=== PATIENT | female | born 1975 | race African-American/Black ===

== ENCOUNTER 2016-12-19 08:18 | Emergency (ER) | payer SELFPAY ==
[~2016-12-19] VITALS: Ht 157.5 cm; Wt 45.0 kg
[~2016-12-19 08:18] MED LIST: FLAG500T PO; MACR100C PO
[2016-12-19 08:19] VITALS: BP 150/70; PULSE 92; RESP 16; TEMP 99.8; O2SAT 96
[2016-12-19] MEDS ORDERED: REME15TA PO (09:08)
[2016-12-19] MEDS ORDERED: ONDANSETRON HCL 4 MG/2 ML VIAL IV PUSH ONE (09:15)
[2016-12-19] MEDS ORDERED: SODIUM CHLOR 0.9% 1000 ML INJ 1,000 ML IV ONE (09:15)
[2016-12-19] MEDS ORDERED: KETOROLAC TROMETHAMINE 30 MG/ML (IVP) VIAL IV PUSH ONE (09:15)
--- NOTE | 2016-12-19 09:20 | PD ---
HPI Chief Complaint: Cold / Flu Symptoms Time Seen by Provider: 09:09 Travel History International Travel<30 days: No Contact w/Intl Traveler<30days: No Traveled to known affect area: No History of Present Illness HPI 41-year-old female complains of cough body ache abdominal pain nausea vomiting diarrhea. Patient states that the symptoms started 4 days ago. Patient states that the nausea vomiting diarrhea started last night. Patient states that she had persistent dry cough. Patient states that she has cramping pain is sharp pain diffuse over the abdomen for the past 4 days. Patient denies any pain radiation. Patient denies any dysuria or frequency. Patient states that she has iced discharge a few days ago and started on menstruation period. Patient has history HIV-positive and not on any medication now. Patient has history of depression and was on Remeron until she ran out of it recently. PFSH Past Medical History Autoimmune Disease: Yes (HIV ) Blood Disorders: No Depression: Yes Cancer: No Cardiovascular Problems: No Diminished Hearing: No Endocrine: No Gastrointestinal Disorders: No Glaucoma: No Genitourinary: No Immune Disorder: No Musculoskeletal: No Neurologic: No Psychiatric: No Reproductive: No Respiratory: No ?: Not LMP: at this time : 1 Para: 0 Miscarriage: 1 Past Surgical History AICD: No Arteriovenous Shunt: No Insulin Pump: No Joint Replacement: Yes (right femur ) Pacemaker: No Other Surgery: Yes Social History Alcohol Use: Yes (PT STATES "ALL THE TIME") Tobacco Use: Yes (4 PPD) Substance Use: Yes (smokes a drug) Allergies-Medications (Allergen,Severity, Reaction): Coded Allergies: No Known Allergies (Verified , 08/16/16) Reported Meds & Prescriptions Reported Meds & Active Scripts Active Reported Remeron (Mirtazapine) 15 Mg Tab Unknown Dose PO HS Review of Systems General / Constitutional: No: Fever Eyes: No: Visual changes HENT: No: Headaches Cardiovascular: No: Chest Pain or Discomfort Respiratory: Positive: Cough, No: Shortness of Breath Gastrointestinal: Positive: Nausea, Vomiting, Diarrhea, Abdominal Pain Genitourinary: No: Dysuria Musculoskeletal: Positive: Pain Skin: No Rash Neurologic: No: Weakness Psychiatric: No: Depression Endocrine: No: Polydipsia Hematologic/Lymphatic: No: Easy Bruising Physical Exam Narrative GENERAL: Well-nourished, well-developed patient. SKIN: Warm and dry. HEAD: Normocephalic. EYES: No scleral icterus. No injection or drainage. NECK: Supple, trachea midline. No JVD or lymphadenopathy. CARDIOVASCULAR: Regular rate and rhythm without murmurs, gallops, or rubs. RESPIRATORY: Breath sounds equal bilaterally. No accessory muscle use. GASTROINTESTINAL: Abdomen soft, nondistended. Patient has mild diffuse tenderness over the abdomen. No rebound tenderness. No mass. MUSCULOSKELETAL: No cyanosis, or edema. BACK: Nontender without obvious deformity. No CVA tenderness. Neurologic exam normal. Data Data Last Documented VS Vital Signs Date Time Temp Pulse Resp B/P Pulse Ox O2 Delivery O2 Flow Rate FiO2 12/19/16 08:19 99.8 92 16 150/70 96 Orders Complete Blood Count With Diff (12/19/16 09:14) Comprehensive Metabolic Panel (12/19/16 09:14) Lipase (12/19/16 09:14) Urinalysis - C+S If Indicated (12/19/16 09:14) Influenzae A/B Antigen (12/19/16 09:14) Chest, Single Ap (12/19/16 09:14) Iv Access Insert/Monitor (12/19/16 09:14) Ecg Monitoring (12/19/16 09:14) Oximetry (12/19/16 09:14) Sodium Chlor 0.9% 1000 Ml Inj (Ns 1000 M (12/19/16 09:15) Ketorolac Inj (Toradol Inj) (12/19/16 09:15) Ondansetron Inj (Zofran Inj) (12/19/16 09:15) Urine Culture (12/19/16 09:33) Labs Laboratory Tests Test 12/19/16 12/19/16 09:33 09:37 Urine Color RED Urine Turbidity CLOUDY Urine pH 6.5 Urine Specific [place] 1.031 Urine Protein 100 mg/dL Urine Glucose (UA) NEG mg/dL Urine Ketones 10 mg/dL Urine Occult Blood LARGE Urine Nitrite NEG Urine Bilirubin NEG Urine Urobilinogen 2.0 MG/DL Urine Leukocyte Esterase SMALL Urine RBC /hpf Urine WBC 43 /hpf Urine Squamous Epithelial 11 /hpf Cells Urine Bacteria FEW /hpf Urine Mucus MANY /lpf Microscopic Urinalysis Comment CULTURE INDICATED White Blood Count 3.6 TH/MM3 Red Blood Count 4.64 MIL/MM3 Hemoglobin 14.4 GM/DL Hematocrit 43.4 % Mean Corpuscular Volume 93.4 FL Mean Corpuscular Hemoglobin 31.0 PG Mean Corpuscular Hemoglobin 33.2 % Concent Red Cell Distribution Width 14.5 % Platelet Count 133 TH/MM3 Mean Platelet Volume 8.7 FL Neutrophils (%) (Auto) 63.1 % Lymphocytes (%) (Auto) 29.2 % Monocytes (%) (Auto) 7.2 % Eosinophils (%) (Auto) 0.0 % Basophils (%) (Auto) 0.5 % Neutrophils # (Auto) 2.3 TH/MM3 Lymphocytes # (Auto) 1.1 TH/MM3 Monocytes # (Auto) 0.3 TH/MM3 Eosinophils # (Auto) 0.0 TH/MM3 Basophils # (Auto) 0.0 TH/MM3 CBC Comment DIFF FINAL Differential Comment Sodium Level 134 MEQ/L Potassium Level 4.2 MEQ/L Chloride Level 102 MEQ/L Carbon Dioxide Level 26.8 MEQ/L Anion Gap 5 MEQ/L Blood Urea Nitrogen 8 MG/DL Creatinine 0.79 MG/DL Estimat Glomerular Filtration 97 ML/MIN Rate Random Glucose 90 MG/DL Calcium Level 8.6 MG/DL Total Bilirubin 0.4 MG/DL Aspartate Amino Transf 35 U/L (AST/SGOT) Alanine Aminotransferase 17 U/L (ALT/SGPT) Alkaline Phosphatase 57 U/L Total Protein 8.1 GM/DL Albumin 3.7 GM/DL Lipase 188 U/L [facility] Medical Decision Making Medical Screen Exam Complete: Yes Emergency Medical Condition: Yes Interpretation(s) Last Impressions Chest X-Ray 12/19/16 0914 Signed Impressions: Service Date/Time: Monday, December 19, 2016 09:29 - CONCLUSION: No acute disease. Pan Connors MD 10:46 AM. CBC WBC 3.6. Platelet 133. Normal differential. CMP within normal limit. Sodium 134. UA positive with WBC and bacteria. Influenza AB antigen negative. Differential Diagnosis Differential diagnosis including viral syndrome, bronchitis, pneumonia, gastritis, PUD, pancreatitis, cholecystitis, colitis, UTI, pyelonephritis. Narrative Course 41-year-old female with coughing, body ache, pain nausea vomiting diarrhea. Normal saline solution 1 L IV bolus. Toradol 30 mg IV. Zofran 4 mg IV. Diagnosis Primary Impression: UTI (urinary tract infection) Qualified Code: N30.00 - Acute cystitis without hematuria Additional Impressions: Gastroenteritis Viral syndrome Patient Instructions: General Instructions Additional Instructions: Take medications as needed. Encourage by mouth fluid. Follow-up with personal physician. Return if persistent problem or worse. Med/Other Pt SpecificInfo: Prescription(s) given Scripts Sulfamethoxazole-Trimethoprim (Bactrim DS)800-160 Mg Tab1 Tab PO BID #14 TAB Ref 0 Prov:Stuart Fajardo MD 12/19/16 Dicyclomine (Bentyl)20 Mg Tab20 Mg PO TID #15 TAB Ref 0 Prov:Stuart Fajardo MD 12/19/16 Ondansetron Odt (Zofran Odt)4 Mg Tab4 Mg SL Q6HR PRN (Nausea/Vomiting) #10 TAB Ref 0 Prov:Stuart Fajardo MD 12/19/16 Meloxicam (Mobic)15 Mg Tab15 Mg PO DAILY #20 TAB Ref 0 Prov:Stuart Fajardo MD 12/19/16 Disposition: 01 DISCHARGE HOME Condition: Stable Stuart Fajardo MD Dec 19, 2016 09:20
[2016-12-19 10:01] LABS: AUTOMATED NEUTROPHIL # 2.3 TH/MM3 (1.8-7.7); BASOPHIL % 0.5 % (0.0-2.0); HEMATOCRIT 43.4 % (35.0-46.0); HEMO FLAGS DIFF FINAL; LYMPH % 29.2 % (9.0-44.0); LYMPHOCYTE # 1.1 TH/MM3 (1.0-4.8); MEAN CELL VOLUME 93.4 FL (80.0-100.0); MEAN CORPUSCULAR HGB CONC 33.2 % (32.0-36.0); MONO % 7.2 % (0.0-8.0); NEUT % 63.1 % (16.0-70.0); PLATELET COUNT 133 TH/MM3 (150-450); RED BLOOD COUNT 4.64 MIL/MM3 (4.00-5.30); RED CELL DISTRIBUTION WIDTH 14.5 % (11.6-17.2); WHITE BLOOD COUNT 3.6 TH/MM3 (4.0-11.0)
--- NOTE | 2016-12-19 10:06 | RADRPT ---
EXAM DATE/TIME: 12/19/2016 09:29 [place] COMPARISON: No previous studies available for comparison. INDICATIONS : Cough, congestion, fever for 4 days MEDICAL HISTORY : None. SURGICAL HISTORY : None. ENCOUNTER: Initial ACUITY: 4 - 6 days PAIN SCORE: 0/10 LOCATION: Bilateral chest FINDINGS: A single view of the chest demonstrates the lungs to be symmetrically aerated without evidence of mas s, infiltrate or effusion. The cardiomediastinal contours are unremarkable. Osseous structures are intact. Bilateral nipple shadows are present. CONCLUSION: No acute disease. Pan Connors MD on December 19, 2016 at 10:03 Board Certified Radiologist. This report was verified electronically.
[2016-12-19 10:37] LABS: ALKALINE PHOSPHATASE 57 U/L (45-117); TOTAL BILIRUBIN ADULT 0.4 MG/DL (0.2-1.0)
[2016-12-19 10:39] LABS: BACTERIA, URINE FEW /hpf; BLOOD, URINE LARGE (NEG); GLUCOSE,URINE NEG (NEG); KETONE, URINE 10 mg/dL (NEG); MUCUS URINE MANY /lpf (OCC); NITRITE,URINE NEG (NEG); PH, URINE 6.5 (5.0-8.5); SQUAMOUS EPITHELIAL CELL URINE 11 /hpf (0-5); URINE COLOR RED (YELLW/STRAW)
[2016-12-19 10:40] LABS: ALT (GPT) 17 U/L (10-53); ANION GAP 5 MEQ/L (5-15); AST (GOT) 35 U/L (15-37); BICARBONATE 26.8 MEQ/L (21.0-32.0); BLOOD UREA NITROGEN 8 MG/DL (7-18); CHLORIDE 102 MEQ/L (98-107); GLOMERULAR FILTRATION RATE 97 ML/MIN (>89); POTASSIUM 4.2 MEQ/L (3.5-5.1); SODIUM (NA) 134 MEQ/L (136-145)
[2016-12-19 10:40] LABS: COMMENT (UR) CULTURE INDICATED; CULTURE IF INDICATED CULTURE INDICATED
[2016-12-19] MEDS ORDERED: MOBI15TA PO (10:50)
[2016-12-19] MEDS ORDERED: BACT800T5 PO (10:50)
[2016-12-19] MEDS ORDERED: ZOFR4TAB3 SL (10:50)
[2016-12-19] MEDS ORDERED: BENT20TA PO (10:50)
[2016-12-19 11:30] VITALS: BP 150/62; PULSE 80; RESP 16; O2SAT 99
[2016-12-20 02:26] LABS: CHLAMYDIA PCR NOT DETECTED (NOT DETECT); NEISSERIA PCR NOT DETECTED (NOT DETECT)
== END 2016-12-19 11:57 | disposition home or self-care (01) ==
LOC: NEPC 08:18
DX: N39.0 Urinary tract infection, site not specified (principal); K52.9 Noninfective gastroenteritis and colitis, unspecified; B34.9 Viral infection, unspecified; B96.89 Other specified bacterial agents as the cause of diseases classified elsewhere
CPT/HCPCS: 71010; 80053; 81001; 83690; 85025; 87086; 87491; 87591; 87804; 96361; 96374; 96375; 99284; J1885; J2405; J7030

== ENCOUNTER 2017-03-23 19:53 | Emergency (ER) | payer SELFPAY ==
[~2017-03-23] VITALS: Ht 157.5 cm; Wt 47.0 kg
[~2017-03-23 19:53] MED LIST changes: +BACT800T5 PO; +BENT20TA PO; -FLAG500T PO; -MACR100C PO; +MOBI15TA PO; +REME15TA PO; +ZOFR4TAB3 SL
[2017-03-23 19:55] VITALS: BP 120/79; PULSE 109; RESP 16; O2SAT 100
[2017-03-23 20:53] LABS: BLOOD, URINE NEG (NEG); COMMENT (UR) CULT NOT INDICATED; CULTURE IF INDICATED CULT NOT INDICATED; GLUCOSE,URINE NEG (NEG); KETONE, URINE NEG (NEG); MUCUS URINE FEW /lpf (OCC); NITRITE,URINE NEG (NEG); PH, URINE 6.5 (5.0-8.5); SQUAMOUS EPITHELIAL CELL URINE 2 /hpf (0-5); URINE COLOR YELLOW (YELLW/STRAW)
--- NOTE | 2017-03-23 20:56 | PD ---
HPI . 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 She also believes that she has a condom in her vagina. The symptoms have been present for months. Patient reports that she's been seen here for this in the past she had an infection. She states that no foreign body seen at that time. She states that her symptoms have persisted. PFSH Past Medical History Autoimmune Disease: Yes (HIV ) Blood Disorders: No Depression: Yes Cancer: No Cardiovascular Problems: No Diminished Hearing: No Endocrine: No Gastrointestinal Disorders: No Glaucoma: No Genitourinary: No Immune Disorder: No Musculoskeletal: No Neurologic: No Psychiatric: No Reproductive: No Respiratory: No ?: Not : 1 Para: 0 Miscarriage: 1 Past Surgical History AICD: No Arteriovenous Shunt: No Insulin Pump: No Joint Replacement: Yes (right femur ) Pacemaker: No Other Surgery: Yes Social History Alcohol Use: Yes (PT STATES "ALL THE TIME") Tobacco Use: Yes (4 PPD) Substance Use: Yes (smokes a drug) Allergies-Medications (Allergen,Severity, Reaction): Coded Allergies: No Known Allergies (Verified , 03/23/17) Reported Meds & Prescriptions Reported Meds & Active Scripts Active No Active Prescriptions or Reported Medications Review of Systems Except as stated in HPI: all other systems reviewed are Neg Genitourinary: Positive: Discharge, No: Urgency, Frequency, Dysuria Physical Exam Narrative GENERAL: Thin woman who is in no acute distress. SKIN: Warm and dry. HEAD: Atraumatic. Normocephalic. EYES: Pupils equal and round. Extraocular movements are intact. ENT: No nasal bleeding or discharge. Mucous membranes pink and moist. NECK: Trachea midline. Neck is supple. CARDIOVASCULAR: Regular rate and rhythm. RESPIRATORY: No accessory muscle use. GASTROINTESTINAL: Abdomen soft, non-tender, nondistended. : No vaginal foreign body was seen. Cervical os is closed. There is no cervical motion tenderness. RECTAL: No rectal foreign body was found. MUSCULOSKELETAL: No obvious deformities. No edema. NEUROLOGICAL: Awake and alert. No obvious cranial nerve deficits. Motor grossly within normal limits. Normal speech. PSYCHIATRIC: Appropriate mood and affect; insight and judgment normal. Data Data Last Documented VS Vital Signs Date Time Temp Pulse Resp B/P Pulse Ox O2 Delivery O2 Flow Rate FiO2 03/23/17 19:55 109 16 120/79 100 Room Air Orders Gc And Chlamydia Pcr (03/23/17 20:10) Wet Prep Profile (03/23/17 20:10) Urinalysis - C+S If Indicated (03/23/17 20:10) Ed Urine Pregnancytest Poc (03/23/17 20:10) Ceftriaxone Inj (Rocephin Inj) (03/23/17 21:00) Lidocaine 1% Inj (50 Ml) (Xylocaine 1% I (03/23/17 21:00) Labs Laboratory Tests Test 03/23/17 20:20 Urine Color YELLOW Urine Turbidity HAZY Urine pH 6.5 Urine Specific [place] 1.028 Urine Protein TRACE mg/dL Urine Glucose (UA) NEG mg/dL Urine Ketones NEG mg/dL Urine Occult Blood NEG Urine Nitrite NEG Urine Bilirubin NEG Urine Urobilinogen 2.0 MG/DL Urine Leukocyte Esterase TRACE Urine RBC 5 /hpf Urine WBC 3 /hpf Urine Squamous Epithelial 2 /hpf Cells Urine Amorphous Sediment RARE Urine Mucus FEW /lpf Microscopic Urinalysis Comment CULT NOT INDICATED Clue Cells (Wet Prep) PRESENT Vaginal Trichomonas (Wet Prep) PRESENT Vaginal Yeast (Wet Prep) NONE SEEN MDM Medical Decision Making Medical Screen Exam Complete: Yes Emergency Medical Condition: Yes Medical Record Reviewed: Yes (patient was seen in August with similar complaints. She was found to have bacterial vaginosis and Trichomonas. She was treated with Flagyl.) Differential Diagnosis Differential diagnosis of vaginal discharge includes but is not limited to physiologic discharge, yeast infection, bacterial vaginosis, sexually transmitted disease. Narrative Course Patient presents complaining with a malodorous vaginal discharge. She is also complaining with a foreign body sensation but there is no foreign body on exam. Her wet prep shows bacterial vaginosis and Trichomonas. Diagnosis Primary Impression: BV (bacterial vaginosis) Additional Impression: Trichomoniasis of vagina Patient Instructions: Bacterial Vaginosis (DC), General Instructions, Trichomoniasis (DC) Med/Other Pt SpecificInfo: Prescription(s) given Scripts Metronidazole (Flagyl)500 Mg [id number] Mg PO BID #14 TAB Ref 0 Prov:Archana Mejia MD 03/23/17 Doxycycline Hyclate 100 Mg [id number] Mg PO BID #20 CAP Ref 0 Prov:Archana Mejia MD 03/23/17 Disposition: 01 DISCHARGE HOME Condition: Stable Archana Mejia MD March 23, 2017 20:56
[2017-03-23] MEDS ORDERED: LIDOCAINE HCL 1% 50 ML VIAL XX ONE (21:00)
[2017-03-23] MEDS ORDERED: cefTRIAXone 250 MG VIAL IM ONE (21:00)
[2017-03-23] MEDS ORDERED: METR-1 PO (21:04)
[2017-03-23] MEDS ORDERED: DOXY100C PO (21:04)
[2017-03-23 23:06] LABS: CHLAMYDIA PCR NOT DETECTED (NOT DETECT); NEISSERIA PCR NOT DETECTED (NOT DETECT)
== END 2017-03-23 21:39 | disposition home or self-care (01) ==
LOC: NEPD 19:53
DX: N76.0 Acute vaginitis (principal); A59.01 Trichomonal vulvovaginitis; Z21 Asymptomatic human immunodeficiency virus [HIV] infection status; F17.210 Nicotine dependence, cigarettes, uncomplicated
CPT/HCPCS: 81001; 84703; 87210; 87491; 87591; 96372; 99284; J0696

== ENCOUNTER 2017-07-07 16:15 | Emergency (ER) | payer SELFPAY ==
[~2017-07-07] VITALS: Ht 157.5 cm; Wt 45.0 kg
[~2017-07-07 16:15] MED LIST changes: -BACT800T5 PO; -BENT20TA PO; +DOXY100C PO; +METR-1 PO; -MOBI15TA PO; -REME15TA PO; -ZOFR4TAB3 SL
[2017-07-07 16:23] VITALS: BP_SYST 131; BP_SYST 188; BP_DIAS 77; BP_DIAS 89; PULSE 104; PULSE 75; RESP 14; RESP 17; TEMP 98.4; O2SAT 99
--- NOTE | 2017-07-07 17:10 | PD ---
HPI Chief Complaint: Staff Scientist Problem/Complaint Time Seen by Provider: 16:55 Travel History International Travel<30 days: No Contact w/Intl Traveler<30days: No Traveled to known affect area: No History of Present Illness HPI This patient was examined in the presence of a female nurse at all times. 41-year-old female presents for evaluation of vaginal discharge and foul- smelling vaginal odor. This is been ongoing for several months, worsening over the past few weeks which prompted evaluation. She feels like there is a foreign body in her vagina that has been present for several months. She has been seen here several times in the past with similar complaints with no evidence of foreign body. She has had bacterial vaginosis as well as trichomoniasis several times. She is sexually active with one partner. She denies abdominal pain, nausea or vomiting, fevers or chills, dysuria. No other complaints. PFSH Past Medical History Autoimmune Disease: Yes (HIV ) Blood Disorders: No Depression: Yes Cancer: No Cardiovascular Problems: No Diminished Hearing: No Endocrine: No Gastrointestinal Disorders: No Glaucoma: No Genitourinary: No Immune Disorder: No Musculoskeletal: No Neurologic: No Psychiatric: No Reproductive: No Respiratory: No ?: Not : 1 Para: 0 Miscarriage: 1 Past Surgical History AICD: No Arteriovenous Shunt: No Insulin Pump: No Joint Replacement: Yes (right femur ) Pacemaker: No Other Surgery: Yes Social History Alcohol Use: Yes (PT STATES "ALL THE TIME") Tobacco Use: Yes (4 PPD) Substance Use: Yes (smokes a drug) Allergies-Medications (Allergen,Severity, Reaction): Coded Allergies: No Known Allergies (Verified , 07/07/17) Reported Meds & Prescriptions Reported Meds & Active Scripts Active No Active Prescriptions or Reported Medications Review of Systems Except as stated in HPI: all other systems reviewed are Neg Physical Exam Narrative GENERAL: This is a well-developed somewhat anxious appearing female who is in no acute distress. SKIN: Warm and dry. HEAD: Atraumatic. Normocephalic. EYES: Pupils equal and round. No scleral icterus. No injection or drainage. ENT: No nasal bleeding or discharge. Mucous membranes pink and moist. NECK: Trachea midline. No JVD. CARDIOVASCULAR: Regular rate and rhythm. No murmur appreciated. RESPIRATORY: No accessory muscle use. Clear to auscultation. Breath sounds equal bilaterally. GASTROINTESTINAL: Abdomen soft, non-tender, nondistended. Hepatic and splenic margins not palpable. Pelvic examination performed in the presence of a female nurse: There is some white discharge noted in the vaginal canal. The vaginal canal was thoroughly explored with no evidence of foreign body. Bimanual examination reveals no palpable foreign bodies. There is no cervical motion tenderness, adnexal tenderness, adnexal masses. MUSCULOSKELETAL: No obvious deformities. No clubbing. No cyanosis. No edema. NEUROLOGICAL: Awake and alert. No obvious cranial nerve deficits. Motor grossly within normal limits. Normal speech. Data Data Last Documented VS Vital Signs Date Time Temp Pulse Resp B/P (MAP) Pulse Ox O2 Delivery O2 Flow Rate FiO2 07/07/17 16:23 98.4 75 14 131/77 (95) 99 Orders Orders Gc And Chlamydia Pcr (07/07/17 16:57) Wet Prep Profile (07/07/17 16:57) Ed Urine Pregnancytest Poc (07/07/17 16:57) Azithromycin Powd Pack (Zithromax Powd P (07/07/17 18:15) Ceftriaxone Inj (Rocephin Inj) (07/07/17 18:15) Lidocaine 1% Inj (50 Ml) (Xylocaine 1% I (07/07/17 18:15) Metronidazole (Flagyl) (07/07/17 18:15) Labs Laboratory Tests Test 07/07/17 17:00 Clue Cells (Wet Prep) NONE SEEN Vaginal Trichomonas (Wet Prep) NONE SEEN Vaginal Yeast (Wet Prep) NONE SEEN MDM Medical Decision Making Medical Screen Exam Complete: Yes Emergency Medical Condition: Yes Medical Record Reviewed: Yes Differential Diagnosis Bacterial vaginosis, trichomoniasis, vaginitis, retained foreign body, mass, cyst Narrative Course 41-year-old female with history of bacterial vaginosis and trichomoniasis in the past presents with several months of foul-smelling vaginal discharge and the belief that there has been a retained foreign body. Physical examination reveals no foreign body or abnormal mass. She does have white vaginal discharge. Wet prep and GC probe have been ordered. The patient's wet prep is negative but her symptoms are highly suggestive of bacterial vaginosis. She will be given 2 g of Flagyl and she will also be given azithromycin and Rocephin pending chlamydia gonorrhea PCR results. She is stable for discharge, outpatient follow-up with gynecology. Diagnosis Primary Impression: Vaginal discharge Referrals: [facility] Additional Instructions: Follow-up with a ball point splitter. Return for any emergent medical conditions. Med/Other Pt SpecificInfo: No Change to Meds Scripts No Active Prescriptions or Reported Meds Disposition: 01 DISCHARGE HOME Condition: Stable Anuel Rush Jul 07, 2017 17:10
[2017-07-07] MEDS ORDERED: metroNIDAZOLE 500 MG TAB PO ONE (18:15)
[2017-07-07] MEDS ORDERED: cefTRIAXone 250 MG VIAL IM ONE (18:15)
[2017-07-07] MEDS ORDERED: LIDOCAINE HCL 1% 50 ML VIAL IM ONE (18:15)
[2017-07-07] MEDS ORDERED: AZITHROMYCIN PWD FOR SUSP 1 GM PACKET PO ONE (18:15)
[2017-07-07 20:44] LABS: CHLAMYDIA PCR NOT DETECTED (NOT DETECT); NEISSERIA PCR NOT DETECTED (NOT DETECT)
== END 2017-07-07 18:39 | disposition home or self-care (01) ==
LOC: NEPD 16:15
DX: N89.8 Other specified noninflammatory disorders of vagina (principal); F32.9 Major depressive disorder, single episode, unspecified; F17.200 Nicotine dependence, unspecified, uncomplicated; Z21 Asymptomatic human immunodeficiency virus [HIV] infection status
CPT/HCPCS: 84703; 87210; 87491; 87591; 96372; 99284; J0696

== ENCOUNTER 2017-07-12 23:15 | Inpatient (IN) | payer OTHER ==
[~2017-07-12] VITALS: Ht 160 cm; Wt 43.0 kg
[2017-07-12 23:20] VITALS: BP 121/83; PULSE 97; RESP 20; TEMP 98.5; O2SAT 99
--- NOTE | 2017-07-12 23:28 | PD ---
HPI Chief Complaint: Injury Time Seen by Provider: 23:25 Travel History International Travel<30 days: No Contact w/Intl Traveler<30days: No Traveled to known affect area: No [facility] Past Medical History Autoimmune Disease: Yes (HIV ) Blood Disorders: No Depression: Yes Cancer: No Cardiovascular Problems: No Diminished Hearing: No Endocrine: No Gastrointestinal Disorders: No Glaucoma: No Genitourinary: No Immune Disorder: No Musculoskeletal: No Neurologic: No Psychiatric: No Reproductive: No Respiratory: No : 1 Para: 0 Miscarriage: 1 Past Surgical History AICD: No Arteriovenous Shunt: No Insulin Pump: No Joint Replacement: Yes (right femur ) Pacemaker: No Other Surgery: Yes Social History Alcohol Use: Yes Tobacco Use: Yes Substance Use: No Allergies-Medications (Allergen,Severity, Reaction): Coded Allergies: No Known Allergies (Verified , 07/12/17) Reported Meds & Prescriptions Reported Meds & Active Scripts Active No Active Prescriptions or Reported Medications Data Data Last Documented VS Vital Signs Date Time Temp Pulse Resp B/P (MAP) Pulse Ox O2 Delivery O2 Flow Rate FiO2 07/12/17 23:28 20 Room Air 07/12/17 23:20 98.5 97 121/83 (96) [address] Brain W/O Iv Contrast(Rout) (07/12/17 ) Foot, Limited (2vws) (07/12/17 ) Foot, Limited (2vws) (07/12/17 ) Femur (Ap & Lat/2vws) (07/12/17 ) Tibia/Fibula (Ap/Lat) (07/12/17 ) Tibia/Fibula (Ap/Lat) (07/12/17 ) Morphine Inj (Morphine Inj) (07/12/17 23:30) Ondansetron Odt (Zofran Odt) (07/12/17 23:30) Iv Access Insert/Monitor (07/13/17 00:14) Complete Blood Count With Diff (07/13/17 00:14) Basic Metabolic Panel (Bmp) (07/13/17 00:14) Coag Profile (07/13/17 00:14) Chest, Single Ap (07/13/17 ) Urinalysis - C+S If Indicated (07/13/17 00:14) Ed Urine Pregnancytest Poc (07/13/17 00:14) Splint Or Brace Apply/Monitor (07/13/17 00:22) Diet Npo (07/13/17 Breakfast) Admit Order (Ed Use Only) (07/13/17 00:29) Consult Orthopedic (07/13/17 ) Sodium Chlor 0.9% 1000 Ml Inj (Ns 1000 M (07/13/17 00:30) MDM Scripts No Active Prescriptions or Reported Meds Hannah Rogers Jul 12, 2017 23:28
[2017-07-12] MEDS ORDERED: MORPHINE SULFATE 4 MG/ML INJ IM ONE (23:30)
[2017-07-12] MEDS ORDERED: ONDANSETRON ODT 4 MG TAB PO ONE (23:30)
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
[2017-07-13] VITALS (7 sets, daily range): BP systolic 126–140; BP diastolic 73–88; PULSE 65–84; RESP 16–18; TEMP 96.2–99.4; O2SAT 94–100
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
[2017-07-13] MEDS ORDERED: SODIUM CHLOR 0.9% 1000 ML INJ 1,000 ML IV ONE (00:30)
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
[2017-07-13 01:00] LABS: BLOOD, URINE NEG (NEG); COMMENT (UR) CULT NOT INDICATED; CULTURE IF INDICATED CULT NOT INDICATED; GLUCOSE,URINE NEG (NEG); HYALINE CAST, URINE 1 /lpf (RARE); KETONE, URINE NEG (NEG); MUCUS URINE FEW /lpf (OCC); NITRITE,URINE NEG (NEG); PH, URINE 6.5 (5.0-8.5); SQUAMOUS EPITHELIAL CELL URINE 1 /hpf (0-5); URINE COLOR YELLOW (YELLW/STRAW)
[2017-07-13] MEDS ORDERED: SODIUM CHLORIDE 0.9% FLUSH 10 ML FLUSH IV FLUSH PRN (01:00)
[2017-07-13] MEDS ORDERED: MORPHINE SULFATE 4 MG/ML INJ IV PUSH PRN ×2 (01:00→10:00)
[2017-07-13] MEDS ORDERED: NALOXONE HCL 0.4 MG/ML AMP IV PRN (01:00)
[2017-07-13 01:06] LABS: APTT (PATIENT) 25.2 SEC (24.3-30.1); INTERNATIONAL NORMALIZED RATIO 0.9 RATIO; PROTHROMBIN TIME - PATIENT 10.3 SEC (9.8-11.6)
[2017-07-13 01:08] LABS: AUTOMATED NEUTROPHIL # 8.4 TH/MM3 (1.8-7.7); BASOPHIL % 0.1 % (0.0-2.0); EOSINOPHIL % 0.2 % (0.0-4.0); HEMATOCRIT 37.8 % (35.0-46.0); HEMO FLAGS DIFF FINAL; LYMPH % 11.4 % (9.0-44.0); LYMPHOCYTE # 1.2 TH/MM3 (1.0-4.8); MEAN CELL VOLUME 95.8 FL (80.0-100.0); MEAN CORPUSCULAR HEMOGLOBIN 31.2 PG (27.0-34.0); MEAN CORPUSCULAR HGB CONC 32.5 % (32.0-36.0); MONO % 5.9 % (0.0-8.0); NEUT % 82.4 % (16.0-70.0); PLATELET COUNT 198 TH/MM3 (150-450); RED BLOOD COUNT 3.94 MIL/MM3 (4.00-5.30); RED CELL DISTRIBUTION WIDTH 14.1 % (11.6-17.2); WHITE BLOOD COUNT 10.2 TH/MM3 (4.0-11.0)
[2017-07-13 01:23] LABS: BICARBONATE 24.3 MEQ/L (21.0-32.0)
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
[2017-07-13] MEDS ORDERED: VANCOMYCIN HCL 1000 MG VIAL ONE (07:57)
[2017-07-13] MEDS ORDERED: SODIUM CHLOR 0.9% 250 ML INJ 250 ML ONE (07:58)
[2017-07-13] MEDS: SODIUM CHLORIDE 0.9% FLUSH 10 ML FLUSH IV FLUSH SCH ×2 (07:58→20:01)
[2017-07-13] MEDS ORDERED: GENTAMICIN SULFATE 80 MG/2 ML VIAL ONE (07:58)
[2017-07-13] MEDS ORDERED: ceFAZolin INJ 1,000 MG VIAL ONE (07:58)
[2017-07-13] MEDS ORDERED: ENALAPRILAT 1.25 MG/ML VIAL IV PUSH PRN (08:00)
[2017-07-13] MEDS ORDERED: ACETAMINOPHEN/HYDROcodone 325 MG/10 MG TAB PO PRN (08:00)
[2017-07-13] MEDS ORDERED: ACETAMINOPHEN/HYDROcodone 325 MG/7.5 MG TAB PO PRN (08:00)
--- NOTE | 2017-07-13 08:03 | HHI.PR ---
Subjective Remarks Pt complains of pain 08/11 but appears drowsy and sleepy. Answers but main mumbles. Sleepy but wakes up when I speak w her. She denies any CP/SOB/N/V Discussed w RN, pt is getting her IV pain meds and is drowsy from it. She is second case going to OR this morning. No concerns at this time. Objective Vitals Vital Signs Date Time Temp Pulse Resp B/P (MAP) Pulse Ox O2 Delivery O2 Flow Rate FiO2 07/13/17 02:40 98.7 81 18 126/82 (97) 99 07/13/17 00:41 20 07/12/17 23:28 20 Room Air 07/12/17 23:20 98.5 97 20 121/83 (96) 99 I/O 07/12/17 07/12/17 07/12/17 07/13/17 07/13/17 07/13/17 07:00 15:00 23:00 07:00 15:00 23:00 Intake Total 1000 ml Balance 1000 ml Intake Oral 0 ml IV Total 1000 ml # Voids 1 # Bowel Movements 0 Result Diagram: 07/13/17 0023 07/13/17 0023 Imaging Last Impressions Chest X-Ray 07/13/17 0000 Signed Impressions: Service Date/Time: Thursday, July 13, 2017 00:33 - CONCLUSION: No acute disease. Abilio Guerra MD Tibia/Fibula X-Ray 07/12/17 0000 Signed Impressions: Service Date/Time: Wednesday, July 12, 2017 23:46 - CONCLUSION: Mildly comminuted and mildly displaced fracture of distal right tibial shaft Abilio Guerra MD Head CT 07/12/17 0000 Signed Impressions: Service Date/Time: Wednesday, July 12, 2017 23:58 - CONCLUSION: 1. No acute intracranial abnormalities. Small retention cyst sphenoid sinus. Abilio Guerra MD Foot X-Ray 07/12/17 0000 Signed Impressions: Service Date/Time: Wednesday, July 12, 2017 23:48 - CONCLUSION: 1. No acute bony abnormalities in the right foot. Abilio Guerra MD Femur X-Ray 07/12/17 0000 Signed Impressions: Service Date/Time: Wednesday, July 12, 2017 23:53 - CONCLUSION: Unremarkable examination of the left femur. Abilio Guerra MD Objective Remarks GENERAL: This is a cachectic female patient, somnolent but awake enough to answer my questions ENT: Nose without drainage NECK: Trachea midline. CARDIOVASCULAR: Regular rate and rhythm without murmurs RESPIRATORY: not using accessory muscles. GASTROINTESTINAL: Abdomen nondistended. No guarding. MUSCULOSKELETAL: Right lower extremity in splint, warm, sensation intact. able to move the left lower extremity. NEUROLOGICAL: somnolent but easily arousable. A/P Problem List: (1) Fracture, tibia ICD Code: S82.209A - Unspecified fracture of shaft of unspecified tibia, initial encounter for closed fracture Status: Acute Assessment and Plan (1) Fracture, tibia Right tibial fracture - orthopedic surgery following. Pt scheduled to go to OR this morning. - Morphine 2 mg IV q3h PRN pain. I have added norco po prn - continuous cardiac telemetry to monitor for arrhythmia - monitor vs q4h HIV - patient reports it's undetectable and she does not require medications but does not get any blood work checked. To be managed as an outpatient. DVT prophylaxis - post operatively per ortho Discharge Planning OR today Problem Qualifiers (1) Fracture, tibia: Qualified Codes: S82.251A - Displaced comminuted fracture of shaft of right tibia, initial encounter for closed fracture Ericka Cardenas MD Jul 13, 2017 08:03
[2017-07-13] MEDS: LACTATED RINGER'S 1000 ML INJ 1,000 ML IV SCH ×3 (09:57→21:08)
[2017-07-13] MEDS ORDERED: diphenhydrAMINE HCL 25 MG CAP PO PRN (10:00)
[2017-07-13] MEDS ORDERED: ONDANSETRON HCL 4 MG/2 ML VIAL IVP PRN (10:00)
--- NOTE | 2017-07-13 10:02 | PD.OP ---
cc: J Luis Betts MD Operative Report Date of Surgery: Jul 13, 2017 Preoperative Diagnosis: Right tibial shaft fracture Postoperative Diagnosis: Procedure: Right tibia reduction and intramedullary nail fixation Anesthesia: Gen. Surgeon: J Luis Betts Clinical Research Monitor(s): GAURI Metz PA-C The surgical procedure was assisted by my physician assistant casino shift manager. My P.A. presence was necessary throughout this case for the manipulation and positioning of the surgical extremity. My P.A. was assisting me throughout the duration of this procedure. The skill set of a physician assistant casino shift manager was medically necessary to complete this procedure. During the surgical case the operating room surgical technologist was working at the back table and the physician assistant casino shift manager was directly assisting me. Operation and Findings: Implants: synthes [330]mm x [11]mm tibial nail Plan of activity: Nonweightbearing Patient was seen and examined preoperatively. An informed consent was obtained from patient after detailed discussion of risk and benefits. Risks of surgery include bleeding, infection, painful hardware, nonunion, malunion, leg length discrepancy, need for hardware removal, and medical complications associated with anesthesia including blood clots, stroke, heart attack, and were discussed. Operative site was marked. Patient was brought to the operating room placed on or table. Patient received IV antibiotics and was given IV sedation GETA. Operative leg was prepped with alcohol Hibiclens and draped in usual sterile fashion. Timeout procedure was performed Procedure began with reduction of fracture. 2 small incisions were made around the fracture site. A percutaneous clamp was placed. Traction was applied. Fracture was reduced. There was comminution of the fracture. The fracture reduced and excellent alignment was achieved. Fracture clamp was used to aid in reduction. Next a 3 cm incision was made proximal to the patella. Quadriceps tendon was split in line with fibers. Cannulas were placed in the patellofemoral joint to protect the articular surface at all times. A guidepin was placed into the tibia and advanced in the tibial canal. Fluoroscopy was used to confirm appropriate guidepin placement. An opening reamer was used to open the tibial canal. A ball-tipped guidewire was advanced down the tibial canal. Guidepin was passed across the fracture site into the center of the distal tibia. Fluoroscopy confirmed guidepin placement. The nail length was now measured. The fracture was now held in a reduced position and the canal was reamed. The canal was reamed up to appropriate size. A Synthes nail was now selected. Next the nail was fully seated. Using perfect the [place] technique 2 distal interlocking screws were placed. Using the insertion handle as a guide 2 proximal interlocking screws were placed. Fluoroscopy confirmed excellent of fracture with well-placed hardware. Incisions and the knee joint were thoroughly irrigated with sterile saline. Fascia was closed with #1 Vicryl , subcutaneous tissues closed with 3-0 Vicryl and skin was closed with mayuri. Sterile dressings were applied. Patient was awakened and transferred to recovery in stable condition. J Luis Betts MD Jul 13, 2017 10:02
[2017-07-13] MEDS ORDERED: SODIUM CHLORID 0.9% 500 ML IV PRN (11:15)
[2017-07-13] MEDS ORDERED: INSULIN HUMAN REGULAR 1,000 UNITS/10 ML VIAL SQ PRN (11:15)
[2017-07-13] MEDS ORDERED: DO NOT ADM ANY ANTICOAGULANT DRUGS PRN (11:15)
[2017-07-13] MEDS ORDERED: POVIDONE IODINE 5% (ANTISEPSIS KIT) 4 APPLICATIONS EACH NARE PRN (11:15)
[2017-07-13] MEDS ORDERED: LACTATED RINGER'S 1000 ML IV PRN (11:15)
[2017-07-13] MEDS ORDERED: CHLORHEXIDINE GLUCONATE 2 % 1 PACK (2 CLOTHS) TOPICAL PRN (11:15)
[2017-07-13] MEDS ORDERED: METOPROLOL TARTRATE 25 MG TAB PO PRN (11:15)
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
--- NOTE | 2017-07-13 11:46 | RADRPT ---
EXAM DATE/TIME: 07/13/2017 09:46 [facility] COMPARISON: No previous studies available for comparison. INDICATIONS : Right tibia nail. MEDICAL HISTORY : None. SURGICAL HISTORY : None. ENCOUNTER: Initial ACUITY: 1 day PAIN SCORE: Non-responsive. LOCATION: Right Tibia FINDINGS: Examination reveals placement of a tibial IM renee secured proximally with a single screw and distally with 2 screws. There is good reduction of fracture fragments. CONCLUSION: Satisfactory operative appearance. Twan Gayle MD on July 13, 2017 at 11:44 Board Certified Radiologist. This report was verified electronically.
[2017-07-13] MEDS ORDERED: PROPOFOL 200 MG/20 ML AMP IV ONE (12:00)
[2017-07-13] MEDS ORDERED: ePHEDrine/NS 25 MG/5 ML SYR IV ONE (12:00)
[2017-07-13] MEDS ORDERED: PHENYLEPH/NS 1000 MCG/10 ML SYR IV ONE (12:00)
[2017-07-13] MEDS ORDERED: NEOSTIGMINE 3 MG/3 ML SYR IV ONE (12:00)
[2017-07-13] MEDS ORDERED: ERGOCALCIFEROL (VIT D2) 50,000 UNIT CAP PO SCH (12:00)
[2017-07-13] MEDS ORDERED: MIDAZOLAM HCL 2 MG/2 ML VIAL IV ONE (12:00)
[2017-07-13] MEDS: ACETAMINOPHEN/HYDROcodone 325 MG/10 MG TAB PO PRN ×3 (12:10→20:00)
[2017-07-13] MEDS: CALCIUM/VITAMIN D 250 MG/125 U TAB PO SCH ×2 (12:10→16:56)
[2017-07-13] MEDS: ceFAZolin 2 GM PREMIX 50 ML IV SCH ×2 (13:57→20:00)
[2017-07-13] MEDS ORDERED: MAGNESIUM HYDROXIDE SUSP 30 ML CUP PO PRN (22:00)
[2017-07-14] VITALS (8 sets, daily range): BP systolic 121–131; BP diastolic 62–88; PULSE 66–112; RESP 16–18; TEMP 98.3–100; O2SAT 94–98
[2017-07-14] MEDS: ACETAMINOPHEN/HYDROcodone 325 MG/10 MG TAB PO PRN ×5 (00:10→22:16)
[2017-07-14] MEDS: ceFAZolin 2 GM PREMIX 50 ML IV SCH (04:41)
--- NOTE | 2017-07-14 07:10 | PD.ORT.PN ---
Subjective Subjective Remarks Pain controlled no new complaints Objective Vitals Vital Signs Date Time Temp Pulse Resp B/P (MAP) Pulse Ox O2 Delivery O2 Flow Rate FiO2 07/14/17 00:30 100.0 112 18 131/84 (100) 98 07/13/17 20:00 99.4 75 17 135/73 (93) 98 07/13/17 20:00 68 07/13/17 17:36 99 21 07/13/17 15:50 98.7 65 16 140/88 (105) 98 07/13/17 13:30 21 07/13/17 11:17 96.2 72 16 136/84 (101) 100 07/13/17 10:55 98.0 75 26 128/86 (100) 100 Room Air 07/13/17 10:45 73 26 123/80 (94) 99 Room Air 07/13/17 10:30 82 30 118/78 (91) 98 Room Air 07/13/17 10:21 97.6 87 24 111/71 (84) 97 Room Air 07/13/17 08:15 75 07/13/17 08:00 96.4 84 16 128/82 (97) 94 I/O 07/13/17 07/13/17 07/13/17 07/14/17 07/14/17 07/14/17 07:00 15:00 23:00 07:00 15:00 23:00 Intake Total 1000 ml 1910 ml 240 ml Output Total 25 ml Balance 1000 ml 1885 ml 240 ml Intake Oral 0 ml 660 ml 240 ml IV Total 1000 ml 300 ml Other 950 ml Output Urine Total 0 ml Other 25 ml # Voids 1 3 1 # Bowel Movements 0 0 0 Result Diagram: 07/13/17 0023 07/13/17 0023 Imaging Last 24 hours Impressions Chest X-Ray 07/13/17 0000 Signed Impressions: Service Date/Time: Thursday, July 13, 2017 00:33 - CONCLUSION: No acute disease. Abilio Guerra MD Objective Remarks Right lower extremity: Clean dry dressings intact. Compartments soft. Distally intact sensation weak dorsiflexion plantar flexion secondary to pain Assessment & Plan Assessment and Plan Right tibial shaft fracture with intramedullary renee fixation POD 1 Physical therapy nonweightbearing right lower extremity Daily dressing changes beginning POD 2 Plan for discharge tomorrow Lovenox Incentive spirometry Follow up with Dr. Betts or PA in 2 weeks Pan Clemons Jr. Jul 14, 2017 07:10
[2017-07-14] MEDS ORDERED: CALCTAB19 PO (08:38)
[2017-07-14] MEDS ORDERED: WALKER/ADULT/FO1 MIS (08:38)
[2017-07-14] MEDS ORDERED: HYDR-3583 PO (08:38)
--- NOTE | 2017-07-14 08:38 | HHI.PR ---
Subjective Remarks Pt states that she has pain 06/11 but laying in bed eating a popsicle and appearing comfortable. no CP/SOB/N/V Objective Vitals Vital Signs Date Time Temp Pulse Resp B/P (MAP) Pulse Ox O2 Delivery O2 Flow Rate FiO2 07/14/17 04:45 100.0 72 17 130/79 (96) 98 07/14/17 00:30 100.0 112 18 131/84 (100) 98 07/13/17 20:00 99.4 75 17 135/73 (93) 98 07/13/17 20:00 68 07/13/17 17:36 99 21 07/13/17 15:50 98.7 65 16 140/88 (105) 98 07/13/17 13:30 21 07/13/17 11:17 96.2 72 16 136/84 (101) 100 07/13/17 10:55 98.0 75 26 128/86 (100) 100 Room Air 07/13/17 10:45 73 26 123/80 (94) 99 Room Air 07/13/17 10:30 82 30 118/78 (91) 98 Room Air 07/13/17 10:21 97.6 87 24 111/71 (84) 97 Room Air I/O 07/13/17 07/13/17 07/13/17 07/14/17 07/14/17 07/14/17 07:00 15:00 23:00 07:00 15:00 23:00 Intake Total 1000 ml 1910 ml 290 ml 290 ml Output Total 25 ml Balance 1000 ml 1885 ml 290 ml 290 ml Intake Oral 0 ml 660 ml 240 ml 240 ml IV Total 1000 ml 300 ml 50 ml 50 ml Other 950 ml Output Urine Total 0 ml Other 25 ml # Voids 1 3 1 2 # Bowel Movements 0 0 0 0 Result Diagram: 07/13/17 0023 07/13/17 0023 Imaging Last Impressions Tibia/Fibula X-Ray 07/13/17 0000 Signed Impressions: Service Date/Time: Thursday, July 13, 2017 09:46 - CONCLUSION: Satisfactory operative appearance. Twan Gayle MD Chest X-Ray 07/13/17 0000 Signed Impressions: Service Date/Time: Thursday, July 13, 2017 00:33 - CONCLUSION: No acute disease. Abilio Guerra MD Head CT 07/12/17 0000 Signed Impressions: Service Date/Time: Wednesday, July 12, 2017 23:58 - CONCLUSION: 1. No acute intracranial abnormalities. Small retention cyst sphenoid sinus. Abilio Guerra MD Foot X-Ray 07/12/17 0000 Signed Impressions: Service Date/Time: Wednesday, July 12, 2017 23:48 - CONCLUSION: 1. No acute bony abnormalities in the right foot. Abilio Guerra MD Femur X-Ray 07/12/17 0000 Signed Impressions: Service Date/Time: Wednesday, July 12, 2017 23:53 - CONCLUSION: Unremarkable examination of the left femur. Abilio Guerra MD Objective Remarks GENERAL: This is a cachectic female patient, awake and alert, sitting up in bed ENT: Nose without drainage NECK: Trachea midline. CARDIOVASCULAR: Regular rate and rhythm without murmurs RESPIRATORY: clear to auscultation w no wheezing. GASTROINTESTINAL: Abdomen nondistended. No guarding. MUSCULOSKELETAL: Right lower extremity w dressings in place, d/c/i, able to wiggle her toes, sensation intact, <2sec cap refill. able to move the left lower extremity. NEUROLOGICAL: awake, answers questions appropriately, eating a popsicle A/P Problem List: (1) Fracture, tibia ICD Code: S82.209A - Unspecified fracture of shaft of unspecified tibia, initial encounter for closed fracture Status: Acute Assessment and Plan (1) Fracture, tibia Right tibial fracture - orthopedic surgery following. s/p right tibial shaft fx w intramedullary renee fx pod#1. nonweightbearing right lower ext, lovenox per ortho. - Pain management per orthopedic sx. - rehab per ortho. - Tmax 100.0. Encouraged use of IS q1hr. I did make sure pt knows how to use IS. most likely from atelectasis HIV - patient reports it's undetectable and she does not require medications but does not get any blood work checked. To be managed as an outpatient. DVT prophylaxis - lovenox Discharge Planning when cleared by ortho Problem Qualifiers (1) Fracture, tibia: Qualified Codes: S82.251A - Displaced comminuted fracture of shaft of right tibia, initial encounter for closed fracture Ericka Cardenas MD Jul 14, 2017 08:38
[2017-07-14 08:56] LABS: AUTOMATED NEUTROPHIL # 5.3 TH/MM3 (1.8-7.7); BASOPHIL % 0.3 % (0.0-2.0); EOSINOPHIL % 0.2 % (0.0-4.0); HEMATOCRIT 29.7 % (35.0-46.0); HEMO FLAGS DIFF FINAL; LYMPH % 18.4 % (9.0-44.0); LYMPHOCYTE # 1.4 TH/MM3 (1.0-4.8); MEAN CELL VOLUME 94.9 FL (80.0-100.0); MEAN CORPUSCULAR HEMOGLOBIN 31.4 PG (27.0-34.0); MEAN CORPUSCULAR HGB CONC 33.1 % (32.0-36.0); MONO % 12.4 % (0.0-8.0); NEUT % 68.7 % (16.0-70.0); PLATELET COUNT 170 TH/MM3 (150-450); RED BLOOD COUNT 3.13 MIL/MM3 (4.00-5.30); RED CELL DISTRIBUTION WIDTH 13.7 % (11.6-17.2); WHITE BLOOD COUNT 7.6 TH/MM3 (4.0-11.0)
[2017-07-14 09:22] LABS: BICARBONATE 27.2 MEQ/L (21.0-32.0); POTASSIUM 3.4 MEQ/L (3.5-5.1)
[2017-07-14] MEDS: ENOXAPARIN SODIUM 30 MG/0.3 ML SYRINGE SQ SCH (09:45)
[2017-07-14] MEDS: CHOLECALCIFEROL (VIT D3) 1000 UNIT TAB PO SCH (09:46)
[2017-07-14] MEDS: CALCIUM/VITAMIN D 250 MG/125 U TAB PO SCH ×3 (09:46→16:13)
[2017-07-14] MEDS: ASCORBIC ACID 500 MG TAB PO SCH (09:46)
[2017-07-14] MEDS: SODIUM CHLORIDE 0.9% FLUSH 10 ML FLUSH IV FLUSH SCH ×2 (09:57→22:16)
[2017-07-14] MEDS: LACTATED RINGER'S 1000 ML INJ 1,000 ML IV SCH ×2 (15:57→22:21)
[2017-07-15 00:35] VITALS: BP 110/68; PULSE 72; RESP 16; TEMP 98.4; O2SAT 99
[2017-07-15 04:05] VITALS: BP 129/79; PULSE 83; RESP 16; TEMP 98.2; O2SAT 98
[2017-07-15] MEDS: ACETAMINOPHEN/HYDROcodone 325 MG/10 MG TAB PO PRN ×3 (05:51→15:40)
--- NOTE | 2017-07-15 07:00 | PD.ORT.PN ---
Subjective Subjective Remarks Pain controlled no new complaints Objective Vitals Vital Signs Date Time Temp Pulse Resp B/P (MAP) Pulse Ox O2 Delivery O2 Flow Rate FiO2 07/15/17 04:05 98.2 83 16 129/79 (96) 98 07/15/17 00:35 98.4 72 16 110/68 (82) 99 07/14/17 20:35 99.8 89 16 131/88 (102) 95 07/14/17 15:40 98.9 77 16 121/62 (81) 94 07/14/17 15:40 95 21 07/14/17 12:01 99.8 77 16 128/66 (86) 95 07/14/17 09:00 98 21 07/14/17 07:59 98.3 66 16 130/65 (86) 98 I/O 07/14/17 07/14/17 07/14/17 07/15/17 07/15/17 07/15/17 07:00 15:00 23:00 07:00 15:00 23:00 Intake Total 290 ml 720 ml 120 ml 440 ml Balance 290 ml 720 ml 120 ml 440 ml Intake Oral 240 ml 720 ml 120 ml 440 ml IV Total 50 ml # Voids 2 2 4 4 # Bowel Movements 0 0 0 0 Result Diagram: 07/14/1736 07/14/1736 Imaging Last 72 hours Impressions Tibia/Fibula X-Ray 07/13/17 0000 Signed Impressions: Service Date/Time: Thursday, July 13, 2017 09:46 - CONCLUSION: Satisfactory operative appearance. Twan Galye MD Chest X-Ray 07/13/17 0000 Signed Impressions: Service Date/Time: Thursday, July 13, 2017 00:33 - CONCLUSION: No acute disease. Abilio Guerra MD Last 24 hours Impressions Chest X-Ray 07/13/17 0000 Signed Impressions: Service Date/Time: Thursday, July 13, 2017 00:33 - CONCLUSION: No acute disease. Abilio Guerra MD Objective Remarks Right lower extremity: Clean dry dressings intact. Compartments soft. Distally intact sensation weak dorsiflexion plantar flexion secondary to pain Left lower extremity: Pain to palpation over calf and plantar surface of foot. Intact sensation distally with good capillary refills. Active dorsiflexion and plantar flexion of foot Assessment & Plan Assessment and Plan Right tibial shaft fracture with intramedullary renee fixation POD 2 Physical therapy nonweightbearing right lower extremity Daily dressing changes Plan for discharge today Lovenox Incentive spirometry Follow up with Dr. Betts or PA in 2 weeks Pan Clemons Jr. Jul 15, 2017 07:00
[2017-07-15 08:00] VITALS: BP 127/64; PULSE 95; RESP 18; TEMP 98.5; O2SAT 98
[2017-07-15] MEDS: CHOLECALCIFEROL (VIT D3) 1000 UNIT TAB PO SCH (08:40)
[2017-07-15] MEDS: ASCORBIC ACID 500 MG TAB PO SCH (08:40)
[2017-07-15] MEDS: CALCIUM/VITAMIN D 250 MG/125 U TAB PO SCH ×2 (08:40→12:53)
[2017-07-15] MEDS: SODIUM CHLORIDE 0.9% FLUSH 10 ML FLUSH IV FLUSH SCH (08:41)
[2017-07-15] MEDS: ENOXAPARIN SODIUM 30 MG/0.3 ML SYRINGE SQ SCH (08:41)
[2017-07-15 11:26] VITALS: O2SAT 99
[2017-07-15] MEDS: LACTATED RINGER'S 1000 ML INJ 1,000 ML IV SCH (11:57)
[2017-07-15 12:00] VITALS: BP 135/79; PULSE 82; RESP 18; TEMP 100.3; O2SAT 100
[2017-07-15] MEDS ORDERED: POTASSIUM CHLORIDE 10 MEQ CONTROLLED RELEASE TAB PO ONE (13:15)
[2017-07-15] MEDS ORDERED: POTASSIUM CHLORIDE 20 MEQ CONTROLLED RELEASE TAB PO ONE (13:30)
[2017-07-15 13:50] VITALS: RESP 16
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
--- NOTE | 2017-07-15 14:18 | HHI.DCPOC ---
Discharge Care Plan Diagnosis: (1) Fracture, tibia (2) HIV (human immunodeficiency virus infection) (3) Anemia (4) Hypokalemia Goals to Promote Your Health * To prevent worsening of your condition and complications * To maintain your health at the optimal level Directions to Meet Your Goals Nonweightbearing Right lower extremity Take your medications as prescribed Follow your dietary instruction Follow activity as directed Keep your appointments as scheduled Take your immunizations and boosters as scheduled If your symptoms worsen call your PCP, if no PCP go to Urgent Care Center or Emergency Room Smoking is Dangerous to Your Health. Avoid second hand smoke Call the 24-hour hour crisis hotline for domestic abuse at Kaley Palacios Jul 15, 2017 14:18
== END 2017-07-15 15:53 | DRG 493 ==
LOC: NEPD 23:15 → NEDA 07-13 00:30 → N06B 07-13 02:37
PROVIDERS: ADMIT Hospitalist; ATTEND Hospitalist
PROC: 0QSG06Z Reposition Right Tibia with Intramedullary Internal Fixation Device, Open Approach (ICD-10-PCS; principal; 2017-07-13 08:53)
DX: S82.251A Displaced comminuted fracture of shaft of right tibia, initial encounter for closed fracture (principal); R64 Cachexia; S09.90XA Unspecified injury of head, initial encounter; F32.9 Major depressive disorder, single episode, unspecified; S80.12XA Contusion of left lower leg, initial encounter; D64.9 Anemia, unspecified; Z68.1 Body mass index [BMI] 19.9 or less, adult; F17.210 Nicotine dependence, cigarettes, uncomplicated; Z21 Asymptomatic human immunodeficiency virus [HIV] infection status; E87.6 Hypokalemia; W21.11XA Struck by baseball bat, initial encounter
CPT/HCPCS: 70450; 71010; 73552; 73590; 73620; 76000; 80048; 81001; 84703; 85025; 85610; 85730; 94150; 96374; 99285; C1713; C1769; J0690; J1580; J1650; J2250; J2270; J2370; J2710; J3010; J3370; J7030; J7050

== ENCOUNTER 2017-08-15 14:03 | Emergency (ER) | payer SELFPAY ==
[~2017-08-15] VITALS: Ht 157.5 cm; Wt 50.0 kg
[~2017-08-15 14:03] MED LIST changes: +CALCTAB19 PO; -DOXY100C PO; +HYDR-3583 PO; -METR-1 PO; +WALKER/ADULT/FO1 MIS
[2017-08-15 14:04] VITALS: BP 132/82; PULSE 122; RESP 15; TEMP 99.2; O2SAT 98
[2017-08-15] MEDS ORDERED: IBUP800T23 PO (14:36)
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
[2017-08-15] MEDS ORDERED: IBUPROFEN 800 MG TAB PO ONE (14:45)
== END 2017-08-15 14:50 | disposition home or self-care (01) ==
LOC: NEPD 14:03
DX: M79.661 Pain in right lower leg (principal); Z21 Asymptomatic human immunodeficiency virus [HIV] infection status; F32.9 Major depressive disorder, single episode, unspecified; J45.909 Unspecified asthma, uncomplicated; F17.200 Nicotine dependence, unspecified, uncomplicated; Z87.81 Personal history of (healed) traumatic fracture
CPT/HCPCS: 99282; E0113

== ENCOUNTER 2018-08-02 08:26 | Inpatient (IN) ==
[2018-08-02 09:56] LABS: Baso % (Auto) 0.4 % (0.0-2.0); Eos # (Auto) 0.1 th/mm3 (0.0-0.4); Eos % (Auto) 1.9 % (0.0-4.0); Hematocrit 37.6 % (35.0-46.0); Hemoglobin 12.3 gm/dL (11.6-15.3); Lymph # (Auto) 1.1 th/mm3 (1.0-4.8); Mean Corpuscular HGB Conc 32.8 % (32.0-36.0); Mean Corpuscular Hemoglobin 30.4 pg (27.0-34.0); Mean Corpuscular Volume 92.6 fL (80.0-100.0); Mean Platelet Volume 7.7 fL (7.0-11.0); Mono # (Auto) 0.5 th/mm3 (0.0-0.9); Mono % (Auto) 11.1 % (0.0-8.0); Neut # (Auto) 2.7 th/mm3 (1.8-7.7); Neut % (Auto) 62.6 % (16.0-70.0); Platelet Count 233 th/mm3 (150-450); Red Blood Count 4.06 mil/mm3 (4.00-5.30); Red Cell Distribution Width 15.4 % (11.6-17.2); White Blood Count 4.4 th/mm3 (4.0-11.0)
[2018-08-02 10:02] LABS: Amphetamine Screen,Urine Neg (Neg); Barbiturate Screen,Urine Neg (Neg); Cannabinoid Screen,Urine Neg (Neg); Cocaine Screen,Urine Neg (Neg)
[2018-08-02 10:03] LABS: Opiate Screen,Urine Neg (Neg)
[2018-08-02 10:18] LABS: Alanine Aminotransferase 23 U/L (10-53); Albumin 3.8 g/dL (3.4-5.0); Anion Gap 9 meq/L (5-15); Aspartate Aminotransferase 32 U/L (15-37); Blood Urea Nitrogen 11 mg/dL (7-18); Calcium 8.8 mg/dL (8.5-10.1); Carbon Dioxide 24.6 meq/L (21.0-32.0); Chloride 105 meq/L (98-107); Glomerular Filtration Rate Greater Than 89 mL/min (>89); Glucose,Random 89 mg/dL (74-106); Potassium 3.4 meq/L (3.5-5.1); Sodium 139 meq/L (136-145)
[2018-08-02 10:28] LABS: Alkaline Phosphatase 82 U/L (45-117); Thyroid Stimulating Hormone 0.416 uIU/mL (0.358-3.740); Total Protein 8.7 g/dL (6.4-8.2)
--- NOTE | 2018-08-02 10:56 | ED ---
HPI General Chief Complaint: Psychiatric Symptoms Stated Complaint: Psych Eval Time Seen by Provider: 08/02/18 09:11 Source: patient Mode of arrival: ambulatory Limitations: no limitations History of Present Illness HPI Narrative: 42-year-old female presents to the emergency department voluntarily for psychiatric evaluation. Says she is "hearing voices and seeing people other people do not see." This is been going on for many years. She denies history of psychiatric illness, except for depression. Denies suicidal ideations. Reports feeling homicidal and says "I might hurt someone if I do not get help." She does not have a plan. Reports auditory and visual hallucinations. Reports illicit drug use and says she smokes mildly. Says she likes [place] but cannot find anymore. Denies IV drug use. Reports occasional alcohol use. Reports tobacco use. Symptoms are aggravated by people in her neighborhood who say things to her. No known relieving factors. Symptoms are moderate to severe in severity. No treatments tried. Onset unknown. Duration chronic. History of depression. Denies other significant past medical history. No known allergies. No primary care provider. Has no other medical complaints. No other modifying factors or associated signs and symptoms. Related Data Home Medications Medication Instructions Recorded Confirmed No Known Home Medications 07/31/18 08/02/18 Allergies Allergy/AdvReac Type Severity Reaction Status Date / Time No Known Allergies Allergy Verified 08/02/18 09:18 Review of Systems ROS: all other systems reviewed are negative [facility] Medical History Medical History Tibia fracture (Acute) HIV (human immunodeficiency virus infection) (Acute) Social History Social History Substance History: Active Abuse Smoking Status: Current every day smoker Tobacco Type: Cigarettes How Often Do You Have a Drink Containing Alcohol: 2 to 4 times a month Recent Travel in [facility] within the Last 8 Weeks: No Recent Out of Country Travel within the Last 8 Weeks: No Substance Abuse Detail Other: Substance Use Type Other:: "steven" Substance Use Status: Active Immunization History Tetanus Immunization: Unsure Hx Influenza Vaccine This Season: No Exam Narrative Exam Narrative: GENERAL: Well-nourished, well-developed black female patient, in no acute distress SKIN: Warm and dry. HEAD: Atraumatic. Normocephalic. EYES: Pupils equal and round. ENT: Mucosa pink and moist. NECK: Supple. Trachea midline. CARDIOVASCULAR: Regular rate and rhythm. No murmur appreciated. RESPIRATORY: No accessory muscle use. Clear to auscultation. Breath sounds equal bilaterally. GASTROINTESTINAL: Abdomen soft, non-tender, nondistended. Hepatic and splenic margins not palpable. Bowel sounds are active 4 quadrants. MUSCULOSKELETAL: No obvious deformities. No clubbing. No cyanosis. No edema. BACK: No CVA tenderness. NEUROLOGICAL: Awake and alert. Oriented 3. No obvious cranial nerve deficits. Motor grossly within normal limits. Normal speech. Moves all extremities. 5/5 strength to all extremities. PSYCHIATRIC: No delusional thought processes. No hallucinations. Course Initial Documented Vital Signs Temperature 98.2 F 08/02/18 08:29 Pulse Rate 108 H 08/02/18 08:29 Respiratory Rate 18 08/02/18 08:29 Blood Pressure 124/86 08/02/18 08:29 Pulse Oximetry 98 08/02/18 08:29 Last Documented Vital Signs Temperature 97.3 F L 08/03/18 06:00 Pulse Rate 81 08/03/18 13:32 Respiratory Rate 16 08/03/18 13:32 Blood Pressure 105/57 L 08/03/18 13:32 Pulse Oximetry 96 08/03/18 13:32 Medical Decision Making MDM Narrative Medical decision making narrative: Patient presents voluntarily for psychiatric evaluation. Physical examination and vital signs are essentially unremarkable. Patient has no medical complaints to report. Psych screen has been ordered. If the laboratory results are unremarkable, the patient will be medically cleared for psychiatric evaluation and disposition. Potassium 3.4. 40 MEQ's of PO potassium chloride ordered. Medical Screen Exam Complete: Yes Emergency Medical Condition: Yes Differential Diagnosis Differential Diagnosis: Hallucinations, homicidal ideation, depression, substance-induced mood disorder, methamphetamine abuse, medical clearance for psychiatric evaluation Lab Data Result diagrams: 08/02/18 09:45 08/02/18 09:45 Lab Results 08/02/18 08/02/18 08/02/18 Range/Units 09:15 09:45 09:45 WBC 4.4 (4.0-11.0) th/mm3 RBC 4.06 (4.00-5.30) mil/mm3 Hgb 12.3 (11.6-15.3) gm/dL Hct 37.6 (35.0-46.0) % MCV 92.6 (80.0-100.0) fL MCH 30.4 (27.0-34.0) pg MCHC 32.8 (32.0-36.0) % RDW 15.4 (11.6-17.2) % Plt Count 233 (150-450) th/mm3 MPV 7.7 (7.0-11.0) fL Neut % (Auto) 62.6 (16.0-70.0) % Lymph % (Auto) 24.0 (9.0-44.0) % [place] % (Auto) 11.1 H (0.0-8.0) % Eos % (Auto) 1.9 (0.0-4.0) % Baso % (Auto) 0.4 (0.0-2.0) % Neut # (Auto) 2.7 (1.8-7.7) th/mm3 Lymph # (Auto) 1.1 (1.0-4.8) th/mm3 [place] # (Auto) 0.5 (0.0-0.9) th/mm3 Eos # (Auto) 0.1 (0.0-0.4) th/mm3 Baso # (Auto) 0.0 (0.0-0.2) th/mm3 WBC Differential . Differential Comment Auto diff final Sodium 139 (136-145) meq/L Potassium 3.4 L (3.5-5.1) meq/L Chloride 105 (98-107) meq/L Carbon Dioxide 24.6 (21.0-32.0) meq/L Anion Gap 9 (5-15) meq/L BUN 11 (7-18) mg/dL Creatinine 0.79 (0.50-1.00) mg/dL Estimated GFR Greater than 89 (>89) mL/min Random Glucose 89 (74-106) mg/dL Calcium 8.8 (8.5-10.1) mg/dL Total Bilirubin 0.8 (0.2-1.0) mg/dL AST 32 (15-37) U/L ALT 23 (10-53) U/L Alkaline Phosphatase 82 (45-117) U/L Total Protein 8.7 H (6.4-8.2) g/dL Albumin 3.8 (3.4-5.0) g/dL TSH 0.416 (0.358-3.740) uIU/mL Salicylates (2.8-20.0) mg/dL Urine Opiates Screen Neg (Neg) Acetaminophen Less than 2.0 L (10.0-30.0) mcg/mL Ur Barbiturates Screen Neg (Neg) Ur Amphetamines Screen Neg (Neg) U Benzodiazepines Scrn Neg (Neg) Urine Cocaine Screen Neg (Neg) U Cannabinoids Screen Neg (Neg) Serum Alcohol Less than 3 (0-5) mg/dL 08/02/18 Range/Units 09:45 WBC (4.0-11.0) th/mm3 RBC (4.00-5.30) mil/mm3 Hgb (11.6-15.3) gm/dL Hct (35.0-46.0) % MCV (80.0-100.0) fL MCH (27.0-34.0) pg MCHC (32.0-36.0) % RDW (11.6-17.2) % Plt Count (150-450) th/mm3 MPV (7.0-11.0) fL Neut % (Auto) (16.0-70.0) % Lymph % (Auto) (9.0-44.0) % [place] % (Auto) (0.0-8.0) % Eos % (Auto) (0.0-4.0) % Baso % (Auto) (0.0-2.0) % Neut # (Auto) (1.8-7.7) th/mm3 Lymph # (Auto) (1.0-4.8) th/mm3 [place] # (Auto) (0.0-0.9) th/mm3 Eos # (Auto) (0.0-0.4) th/mm3 Baso # (Auto) (0.0-0.2) th/mm3 WBC Differential Differential Comment Sodium (136-145) meq/L Potassium (3.5-5.1) meq/L Chloride (98-107) meq/L Carbon Dioxide (21.0-32.0) meq/L Anion Gap (5-15) meq/L BUN (7-18) mg/dL Creatinine (0.50-1.00) mg/dL Estimated GFR (>89) mL/min Random Glucose (74-106) mg/dL Calcium (8.5-10.1) mg/dL Total Bilirubin (0.2-1.0) mg/dL AST (15-37) U/L ALT (10-53) U/L Alkaline Phosphatase (45-117) U/L Total Protein (6.4-8.2) g/dL Albumin (3.4-5.0) g/dL TSH (0.358-3.740) uIU/mL Salicylates 3.1 (2.8-20.0) mg/dL Urine Opiates Screen (Neg) Acetaminophen (10.0-30.0) mcg/mL Ur Barbiturates Screen (Neg) Ur Amphetamines Screen (Neg) U Benzodiazepines Scrn (Neg) Urine Cocaine Screen (Neg) U Cannabinoids Screen (Neg) Serum Alcohol (0-5) mg/dL Discharge Plan Discharge Disposition Patient Disposition: 30 Still Patient Discharge Condition Condition: Stable Discharge Details Diagnosis: Encounter for psychiatric assessment Physicians Team ED Provider: Kristine De La Garza ED Midlevel Provider: Carmen Cline Primary Care Provider: Primary Care Ayanna Villela Attending Provider: Twan Woody [facility] ; Johnny Brand Status ED Status: Left Department Discharge Information Discharge Date/Time: 08/02/18 22:38
[2018-08-03] MEDS ORDERED: Acetaminophen 325 MG Tablet PO PRN (12:26)
[2018-08-03] MEDS ORDERED: Aluminum/Magnesium/Simethacone Susp 30 ML UDC PO PRN (12:26)
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
[2018-08-03] MEDS: risperiDONE 1 MG ODT PO SCH ×2 (13:33→21:17)
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
[2018-08-03] MEDS: Mirtazapine 15 MG Tablet PO SCH (21:17)
[2018-08-04] MEDS: risperiDONE 1 MG ODT PO SCH ×2 (08:38→20:43)
[2018-08-04] MEDS: Fluconazole 100 MG Tablet PO SCH (08:38)
--- NOTE | 2018-08-04 11:09 | P.PNPSY ---
Subjective Remarks: Patient seen in her room with nurse Krishan, chart reviewed, patient compliant medication. Patient laying quietly in bed she is calmer more appropriate with me though still with fairly poor eye contact. She denies voices at this time does deny suicidality at this time was asking for the vaginal cream that has been ordered. Internal medicine consult reviewed and agreed with and appreciated. For now continue treatment no change Review of Systems All other systems reviewed negative except as stated in HPI Mental Status Examination Appearance: Disheveled Consciousness: Alert Orientation: Person, Place, Date/Time Motor Activity: Normal gait Speech: Pressured (Much calmer today), Rapid (Slower today) Language: Adequate Fund of Knowledge: Inadequate Attention and Concentration: Adequate (Fair) Memory: Unremarkable Mood: Angry (Resolving), Sad, Oppositional (Calm her), Anxious, Irritable ( Calmer) Affect: Other (Increased range and intensity) Thought Process & Associations: Disorganized Thought Content: Hallucinations Hallucination Type: Auditory Delusion Type: Paranoid Suicidal Ideation: No Suicidal Plan: No Suicidal Intention: No Homicidal Ideation: Yes Homicidal Plan: No (Vague thoughts about harming brother) Homicidal Intention: No Insight: Poor Judgment: Poor Assessment and Plan - Assessment (1) Brief psychotic disorder Code(s): F23 - Brief psychotic disorder Status: Acute (2) Polysubstance abuse Code(s): F19.10 - Other psychoactive substance abuse, uncomplicated Status: Acute - Plan Plan: Patient's psychosis is somewhat softer and calmer today, compliant medications. For now continue treatment. Internal medicine consult reviewed and agreed with and appreciated Justification for Continued Inpatient Stay: At this time patient would decompensate if placed in a lower level of care Discharge Planning: To be determined Request Healthcare Surrogate/Guardian Advocate?: No
--- NOTE | 2018-08-04 13:34 | P.TTN ---
- Patient Problems Problems: 1. Discharge planning 2. Medication compliance 3. Knowledge deficit 4. Lack of coping skills - Progress Toward Goals Provider Present: Dr. Nadine Woody, Dr. Huyne Christian Provider Input: Bong - Patient is new admission Nurse Input: Krishan-Patient has history of hallucinations, history of substance use including cocaine, synthetics and marijuana, deneis suicidal and homicidal ideation. Has extensive history of incarceration Psychiatric Counselors Present: Oscar Finn Jr., [facility], Other Psychiatric Therapist Input: Madie- patient is a new admission Group Spec/RT/OT/RANDHAWA Present: Priyanka Mcgregor, GPS, Zain Thomson, OT Group Spec/RT/OT/RANDHAWA Input: Priyanka- attends select groups, is isolative to room , anti social - Documentation Teaching Recipient: Patient
--- NOTE | 2018-08-04 13:54 | P.PNIM ---
Subjective Interval history: Follow up fungal rash, HIV, Anxiety and asthma. Patient seen and examined, lying in bed, sleeping, awaken for assessment. Patient stated she dont know if her rash is not getting better, patient stated did not get her pills for her rash. Patient denies any pain, chest pain or shortness of breath. Denies any fever or chills, denies any nausea or vomiting, denies diarrhea or constipation. No other complaints Physical Exam Vital signs: Vital Signs 08/03/18 18:16 08/04/18 06:00 Pulse Rate 87 76 Respiratory Rate 16 17 Blood Pressure 107/52 L 109/55 L Pulse Oximetry 95 98 Narrative: GENERAL: Well-developed, well-nourished, -Ang[place] female, alert and oriented x3 in no apparent distress SKIN: Warm and dry. Multiple tattoos on the body and arms, multiple facial piercing x3, groin area rash HEAD: Atraumatic. Normocephalic. EYES: Pupils equal and round. No scleral icterus. No injection or drainage. ENT: No nasal bleeding or discharge. Mucous membranes pink and moist. NECK: Trachea midline. No JVD. CARDIOVASCULAR: Regular rate and rhythm. RESPIRATORY: No accessory muscle use. Clear to auscultation. Breath sounds equal bilaterally. GASTROINTESTINAL: Abdomen flat soft, non-tender, nondistended. Hepatic and splenic margins not palpable. MUSCULOSKELETAL: Extremities without clubbing, cyanosis, or edema. No obvious deformities. NEUROLOGICAL: Awake and alert. No obvious cranial nerve deficits. Motor grossly within normal limits. Five out of 5 muscle strength in the arms and legs. Normal speech. PSYCHIATRIC: Appropriate mood and affect; cooperative. Results - Labs CBC & Chem 7: 08/02/18 09:45 08/02/18 09:45 Assessment and Plan - Assessment (1) Susanna rash of groin Code(s): B37.89 - Other sites of candidiasis Status: Acute (2) History of HIV infection Code(s): B20 - Human immunodeficiency virus [HIV] disease Status: Acute (3) Asthma Code(s): J45.909 - Unspecified asthma, uncomplicated Status: Acute (4) Brief psychotic disorder Code(s): F23 - Brief psychotic disorder Status: Acute (5) Polysubstance abuse Code(s): F19.10 - Other psychoactive substance abuse, uncomplicated Status: Acute (6) Hypotension Code(s): I95.9 - Hypotension, unspecified Status: Acute - Plan This is a 42 years old -Angolan young female with past medical history of depression, previous tibia fracture that underwent ORIF in 07/13, history HIV , asthma, who presents to the emergency department voluntarily for psychiatric evaluation. Medicine team was consulted for medical management. Susanna rash of groin, acute -continue on Diflucan -continue on nystatin cream -Monitor response History of HIV infection, Hx of -Presently not exhibiting any signs and symptoms -monitor signs and symptoms -Check for lymphocyte profile, if CD4 is greater than 300, will recommend patient to follow-up at the [place] [facility]. Asthma, Hx of Unspecified asthma, uncomplicated -No shortness of breath no wheezes -Currently not taking any medication Brief psychotic disorder/ Polysubstance abuse Acute / Other psychoactive substance abuse, uncomplicated -Management by the psychiatric team Hypotension Likely related to risperidone -will decrease dose if ok with the Psychiatric team -encourage increase intake DVT prophylaxis: Patient ambulatory Code Status: full code Discussed Condition With: patient and nurse
[2018-08-04] MEDS: Mirtazapine 15 MG Tablet PO SCH (20:43)
[2018-08-05 05:37] VITALS: BP 124/58; PULSE 76; RESP 16; TEMP 98.6; O2SAT 97
[2018-08-05 07:13] LABS: Anion Gap 6 meq/L (5-15); Blood Urea Nitrogen 10 mg/dL (7-18); Calcium 8.3 mg/dL (8.5-10.1); Chloride 105 meq/L (98-107); Glomerular Filtration Rate Greater Than 89 mL/min (>89); Glucose,Random 91 mg/dL (74-106); Potassium 4.2 meq/L (3.5-5.1); Sodium 140 meq/L (136-145)
[2018-08-05 07:20] LABS: Hematocrit 32.6 % (35.0-46.0); Hemoglobin 10.6 gm/dL (11.6-15.3); Mean Corpuscular HGB Conc 32.5 % (32.0-36.0); Mean Corpuscular Hemoglobin 30.4 pg (27.0-34.0); Mean Corpuscular Volume 93.5 fL (80.0-100.0); Platelet Count 224 th/mm3 (150-450); Red Blood Count 3.49 mil/mm3 (4.00-5.30); Red Cell Distribution Width 15.2 % (11.6-17.2); White Blood Count 3.9 th/mm3 (4.0-11.0)
[2018-08-05] MEDS: risperiDONE 1 MG ODT PO SCH (08:30)
[2018-08-05] MEDS: Fluconazole 100 MG Tablet PO SCH (08:30)
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
== END 2018-08-05 16:55 | disposition home or self-care (01) ==
LOC: NEPD 08:26 → NEDA 20:36 → H260 22:32
PROVIDERS: ADMIT Psychiatry & Neurology Psychiatry; ATTEND Psychiatry & Neurology Psychiatry